=== PATIENT | female | born 1960 | race Two or more races ===

== ENCOUNTER 2017-11-04 14:36 | Emergency (ER) | payer OTHER ==
[~2017-11-04] VITALS: Ht 170.2 cm; Wt 95.3 kg
[~2017-11-04 14:36] MED LIST: CEFADROXIL500 MG PO; CELEBREX100 MG PO; KETO10TA2 PO; NEURONTIN300 MG; NEURONTIN300 MG PO; ORPH100T PO; PAXIL10 MG/5 ML PO; PAXIL20 MG; PERCOCET 5/3251 TAB PO; PROVENTIL3 ML/2.5 M IH; RELAGESIC 5001 EACH; SKELAXIN800 MG PO; TRAMADOL HCL-AP1 TAB PO; XANAX0.25 MG; ZYNCOF 20-400120 ML PO; [UNRECOGNIZED DRUG - OTHER]
[2017-11-04] MEDS ORDERED: VASOFLEX TABLE1 EACH (14:40)
[2017-11-04] MEDS ORDERED: FLUOCINONIDE60 ML TOP (17:20)
== END 2017-11-04 17:30 | disposition home or self-care (01) ==
LOC: ER 14:36
DX: R21 Rash and other nonspecific skin eruption (principal); T20.05 Burn of unspecified degree of scalp [any part]; T78.49XS Other allergy, sequela; T65 Toxic effect of other and unspecified substances

== ENCOUNTER 2017-11-27 15:24 | Outpatient (CLI) | payer OTHER ==
[~2017-11-27 15:24] MED LIST changes: +FLUOCINONIDE60 ML TOP; +VASOFLEX TABLE1 EACH
== END 2017-11-27 15:35 | disposition home or self-care (01) ==
LOC: MAMO-SONO 15:24
DX: N64.89 Other specified disorders of breast (principal); I10 Essential (primary) hypertension; M54.5 Low back pain; E78.89 Other lipoprotein metabolism disorders; E55.9 Vitamin D deficiency, unspecified; Z95.828 Presence of other vascular implants and grafts; F41.8 Other specified anxiety disorders; F32.0 Major depressive disorder, single episode, mild; J40 Bronchitis, not specified as acute or chronic; F33.1 Major depressive disorder, recurrent, moderate; F33.2 Major depressive disorder, recurrent severe without psychotic features

== ENCOUNTER 2018-01-28 11:51 | Emergency (ER) | payer OTHER ==
[~2018-01-28] VITALS: Ht 170.2 cm; Wt 95.3 kg
[2018-01-28] MEDS ORDERED: PAXIL10 MG/5 ML (12:10)
[2018-01-28] MEDS ORDERED: NEURIN (12:10)
== END 2018-01-28 15:30 | disposition home or self-care (01) ==
LOC: ER 11:51
DX: S80.01XA Contusion of right knee, initial encounter (principal); M25.562 Pain in left knee; W01.198A Fall on same level from slipping, tripping and stumbling with subsequent striking against other object, initial encounter; Z96.652 Presence of left artificial knee joint; Y93.01 Activity, walking, marching and hiking; Y92.018 Other place in single-family (private) house as the place of occurrence of the external cause; Y99.8 Other external cause status

== ENCOUNTER 2018-01-31 13:05 | Emergency (ER) | payer OTHER ==
[~2018-01-31] VITALS: Ht 170.2 cm; Wt 95.3 kg
[~2018-01-31 13:05] MED LIST changes: +NEURIN; +PAXIL10 MG/5 ML
== END 2018-01-31 16:25 | disposition home or self-care (01) ==
LOC: ER 13:05
DX: S80.02XA Contusion of left knee, initial encounter (principal); S80.01XA Contusion of right knee, initial encounter; S00.83XA Contusion of other part of head, initial encounter; S19.89XA Other specified injuries of other specified part of neck, initial encounter; W01.198A Fall on same level from slipping, tripping and stumbling with subsequent striking against other object, initial encounter; Y93.89 Activity, other specified; Y92.480 Sidewalk as the place of occurrence of the external cause; Y99.8 Other external cause status

== ENCOUNTER 2018-11-24 21:08 | Emergency (ER) | payer OTHER ==
[~2018-11-24] VITALS: Ht 170.2 cm; Wt 95.3 kg
[2018-11-25] MEDS ORDERED: KETO10TA2 PO (00:52)
== END 2018-11-25 01:13 | disposition home or self-care (01) ==
LOC: ER 21:08
DX: G89.11 Acute pain due to trauma (principal); M79.641 Pain in right hand; M54.42 Lumbago with sciatica, left side; F45.42 Pain disorder with related psychological factors

== ENCOUNTER → 2019-05-21 08:06 | Outpatient (CLI) | payer OTHER | END | disposition home or self-care (01) | LOC: LAB 08:06 | DX: M54.5 Low back pain (principal); R78.89 Finding of other specified substances, not normally found in blood; E55.9 Vitamin D deficiency, unspecified; Z95.828 Presence of other vascular implants and grafts; F41.8 Other specified anxiety disorders; F33.1 Major depressive disorder, recurrent, moderate; F33.2 Major depressive disorder, recurrent severe without psychotic features; G99.0 Autonomic neuropathy in diseases classified elsewhere; G90.09 Other idiopathic peripheral autonomic neuropathy; G62.89 Other specified polyneuropathies; S63.641A Sprain of metacarpophalangeal joint of right thumb, initial encounter; I11.9 Hypertensive heart disease without heart failure; M79.609 Pain in unspecified limb; M99.05 Segmental and somatic dysfunction of pelvic region; J20.8 Acute bronchitis due to other specified organisms; M51.37 Other intervertebral disc degeneration, lumbosacral region; M16.12 Unilateral primary osteoarthritis, left hip; M25.511 Pain in right shoulder; M25.561 Pain in right knee; I47.2 Ventricular tachycardia; I73.89 Other specified peripheral vascular diseases; I80.01 Phlebitis and thrombophlebitis of superficial vessels of right lower extremity; Z68.31 Body mass index [BMI] 31.0-31.9, adult; Z12.11 Encounter for screening for malignant neoplasm of colon ==

== ENCOUNTER 2019-05-21 10:01 | Outpatient (CLI) | payer OTHER | END 2019-05-21 10:05 | disposition home or self-care (01) | LOC: NUCLEAR 10:01 | DX: M81.0 Age-related osteoporosis without current pathological fracture (principal); M54.5 Low back pain ==

== ENCOUNTER → 2019-05-21 | Outpatient (CLI) | payer OTHER | END | disposition home or self-care (01) | LOC: MAMO-SONO 08:45 → NUCLEAR 10:00 | DX: M54.5 Low back pain (principal); E78.89 Other lipoprotein metabolism disorders; E55.9 Vitamin D deficiency, unspecified; Z95.828 Presence of other vascular implants and grafts; F41.8 Other specified anxiety disorders; J40 Bronchitis, not specified as acute or chronic; F33.1 Major depressive disorder, recurrent, moderate; F33.2 Major depressive disorder, recurrent severe without psychotic features; G99.0 Autonomic neuropathy in diseases classified elsewhere; G90.8 Other disorders of autonomic nervous system; G62.89 Other specified polyneuropathies; Z12.31 Encounter for screening mammogram for malignant neoplasm of breast ==

== ENCOUNTER 2019-07-12 17:59 | Emergency (ER) | payer OTHER ==
[~2019-07-12] VITALS: Ht 152.4 cm; Wt 70.3 kg
[2019-07-12] MEDS ORDERED: VITAMIN B-121000 MC4 PO (18:16)
[2019-07-12] MEDS ORDERED: VOLTAREN100 GM TOP (18:16)
== END 2019-07-12 21:09 | disposition home or self-care (01) ==
LOC: ER 17:59
DX: S70.01XA Contusion of right hip, initial encounter (principal); S80.02XA Contusion of left knee, initial encounter; S80.01XA Contusion of right knee, initial encounter; W18.39XA Other fall on same level, initial encounter; Y93.89 Activity, other specified; Y92.89 Other specified places as the place of occurrence of the external cause; Y99.8 Other external cause status

== ENCOUNTER 2020-01-28 14:10 | Emergency (ER) | payer OTHER ==
[~2020-01-28] VITALS: Ht 170.2 cm; Wt 95.3 kg
[~2020-01-28 14:10] MED LIST changes: +VITAMIN B-121000 MC4 PO; +VOLTAREN100 GM TOP
[2020-01-28] MEDS ORDERED: KETO10TA2 PO (18:12)
== END 2020-01-28 20:33 | disposition home or self-care (01) ==
LOC: ER 14:10
DX: S80.02XA Contusion of left knee, initial encounter (principal); S30.0XXA Contusion of lower back and pelvis, initial encounter; W18.39XA Other fall on same level, initial encounter; Y93.89 Activity, other specified; Y92.89 Other specified places as the place of occurrence of the external cause; Y99.8 Other external cause status

== ENCOUNTER 2020-03-21 17:51 | Emergency (ER) | payer OTHER ==
[~2020-03-21] VITALS: Ht 170.2 cm; Wt 108.4 kg
[2020-03-21] MEDS ORDERED: ALLERGY25 MG PO (22:27)
[2020-03-21] MEDS ORDERED: MEDROL4 MG PO (22:27)
== END 2020-03-21 22:35 | disposition home or self-care (01) ==
LOC: ER 17:51
DX: R21 Rash and other nonspecific skin eruption (principal); L23.5 Allergic contact dermatitis due to other chemical products

== ENCOUNTER 2020-05-06 13:49 | Emergency (ER) | payer OTHER ==
[~2020-05-06] VITALS: Ht 165.1 cm; Wt 108.4 kg
[~2020-05-06 13:49] MED LIST changes: +ALLERGY25 MG PO; +MEDROL4 MG PO
== END 2020-05-06 20:27 | disposition home or self-care (01) ==
LOC: ER 13:49
DX: M54.5 Low back pain (principal); M25.552 Pain in left hip; M25.562 Pain in left knee

== ENCOUNTER 2020-12-11 22:55 | Emergency (ER) | payer OTHER ==
[~2020-12-11] VITALS: Ht 170.2 cm; Wt 104.3 kg
== END 2020-12-12 02:32 | disposition home or self-care (01) ==
LOC: ER 22:55 → EDBD 23:20 → ER 23:20
DX: R00.2 Palpitations (principal); R06.02 Shortness of breath

== ENCOUNTER 2021-05-03 08:45 | Inpatient (IN) | payer OTHER ==
[2021-05-03] MEDS ORDERED: NEURONTIN800 MG (11:12)
[2021-05-10] MEDS ORDERED: CLOTRIMAZOLE-BE15 G1 (09:08)
[2021-05-10] MEDS ORDERED: VASOFLEX TABLE1 EACH (09:08)
[2021-05-10] MEDS ORDERED: SERTRALINE HCL50 MG (09:08)
[2021-05-11] MEDS ORDERED: PERCOCET 5-3251 EACH PO (17:19)
[2021-05-11] MEDS ORDERED: ELIQUIS2.5 MG PO (17:19)
[2021-05-11] MEDS ORDERED: DUI500 PO (17:19)
== END 2021-05-11 21:37 | DRG 470 ==
LOC: SURH 05-09 07:00 → O/R 05-09 07:22 → SURG 05-09 07:22 → SURH 05-09 08:45 → SURG 05-09 15:00
PROVIDERS: ADMIT Orthopaedic Surgery; ATTEND Orthopaedic Surgery
PROC: 0SRC0J9 Replacement of Right Knee Joint with Synthetic Substitute, Cemented, Open Approach (ICD-10-PCS; principal; 2021-05-09 07:00)
DX: M17.11 Unilateral primary osteoarthritis, right knee (principal); D62 Acute posthemorrhagic anemia; E66.9 Obesity, unspecified; Z86.718 Personal history of other venous thrombosis and embolism; Z20.822 Contact with and (suspected) exposure to COVID-19

== ENCOUNTER 2021-08-04 01:45 | Emergency (ER) | payer OTHER ==
[~2021-08-04] VITALS: Ht 170.2 cm; Wt 101.2 kg
[~2021-08-04 01:45] MED LIST changes: +CLOTRIMAZOLE-BE15 G1; +DUI500 PO; +ELIQUIS2.5 MG PO; +NEURONTIN800 MG; +PERCOCET 5-3251 EACH PO; +SERTRALINE HCL50 MG
== END 2021-08-04 08:42 ==
LOC: ER 01:45
DX: M79.662 Pain in left lower leg (principal)

== ENCOUNTER → 2021-11-03 13:33 | Outpatient (CLI) | payer OTHER | END | disposition home or self-care (01) | LOC: NUCLEAR 13:30 | PROVIDERS: ATTEND Internal Medicine | DX: M81.0 Age-related osteoporosis without current pathological fracture (principal) ==

== ENCOUNTER 2022-01-30 13:12 | Outpatient (CLI) | payer OTHER | END 2022-01-30 13:30 | disposition home or self-care (01) | LOC: MAMO-SONO 13:12 | DX: Z12.31 Encounter for screening mammogram for malignant neoplasm of breast (principal); N60.11 Diffuse cystic mastopathy of right breast ==

== ENCOUNTER → 2024-10-01 | Emergency (ER) | payer OTHER ==
[~2024-10-01] VITALS: Ht 170.2 cm; Wt 83.9 kg
[~2024-10-01] MED LIST changes: +LYRICA100 MG PO; +RESTORIL30 M1 PO; +[UNRECOGNIZED DRUG - OTHER]
[2024-10-01 22:34] VITALS: BP 120/69; O2SAT 99
== END | disposition left against medical advice (07) ==
LOC: ER 21:46
DX: Z53.21 Procedure and treatment not carried out due to patient leaving prior to being seen by health care provider (principal)